=== PATIENT | male | born 1950 | race Caucasian/White ===

== ENCOUNTER → 2017-09-23 | Outpatient (CLI) | payer OTHER ==
[~2017-09-23] MED LIST: ADULT LOW DOSE81 MG; BENAZEPRIL HCL40 MG; FISHOIL; NEXIUM40 MG; PRAVASTATIN SOD40 MG
== END ==
LOC: RAD 12:44
DX: J98.11 Atelectasis (principal)

== ENCOUNTER → 2019-07-06 | Outpatient (CLI) | payer OTHER | LOC: SJCVC 10:44 | DX: I45.10 Unspecified right bundle-branch block (principal); I10 Essential (primary) hypertension; I42.9 Cardiomyopathy, unspecified; E78.00 Pure hypercholesterolemia, unspecified; Z96.652 Presence of left artificial knee joint; Z79.899 Other long term (current) drug therapy; Z82.49 Family history of ischemic heart disease and other diseases of the circulatory system ==

== ENCOUNTER → 2019-07-06 | Outpatient (CLI) | payer OTHER | LOC: CAT 11:49 | DX: Z13.6 Encounter for screening for cardiovascular disorders (principal); E78.00 Pure hypercholesterolemia, unspecified; I25.10 Atherosclerotic heart disease of native coronary artery without angina pectoris ==

== ENCOUNTER → 2019-11-06 | Outpatient (CLI) | payer OTHER | LOC: SJCVCIMAG 09:44 | PROVIDERS: ATTEND Internal Medicine Cardiovascular Disease | DX: I37.1 Nonrheumatic pulmonary valve insufficiency (principal); R93.1 Abnormal findings on diagnostic imaging of heart and coronary circulation; I10 Essential (primary) hypertension; E78.5 Hyperlipidemia, unspecified ==

== ENCOUNTER → 2020-02-26 | Outpatient (CLI) | payer OTHER | LOC: SJCVC 13:21 | PROVIDERS: ATTEND Internal Medicine Cardiovascular Disease | DX: I25.10 Atherosclerotic heart disease of native coronary artery without angina pectoris (principal); R94.31 Abnormal electrocardiogram [ECG] [EKG]; I42.9 Cardiomyopathy, unspecified; I10 Essential (primary) hypertension; I77.9 Disorder of arteries and arterioles, unspecified; E78.00 Pure hypercholesterolemia, unspecified; R93.1 Abnormal findings on diagnostic imaging of heart and coronary circulation; Z79.899 Other long term (current) drug therapy ==

== ENCOUNTER → 2020-12-09 | Outpatient (CLI) | payer OTHER, MEDICARE | LOC: SJCVCIMAG 08:34 | PROVIDERS: ATTEND Internal Medicine Cardiovascular Disease | DX: I25.10 Atherosclerotic heart disease of native coronary artery without angina pectoris (principal); E78.5 Hyperlipidemia, unspecified; I10 Essential (primary) hypertension; I25.5 Ischemic cardiomyopathy; R53.83 Other fatigue; R06.00 Dyspnea, unspecified ==

== ENCOUNTER → 2021-01-15 | Outpatient (CLI) | payer OTHER, MEDICARE ==
[2021-01-15 13:34] LABS: CREATININE 1.1 mg/dL (0.7-1.3)
== END ==
LOC: CAT 12:50
PROVIDERS: ATTEND Family Medicine
DX: N40.0 Benign prostatic hyperplasia without lower urinary tract symptoms (principal); M41.86 Other forms of scoliosis, lumbar region; M47.816 Spondylosis without myelopathy or radiculopathy, lumbar region; R10.30 Lower abdominal pain, unspecified; R10.2 Pelvic and perineal pain